=== PATIENT | female | born 1985 | race Two or more races ===

== ENCOUNTER 2025-05-24 17:55 | Emergency (ER) | payer OTHER, SELFPAY ==
[2025-05-24 18:08] VITALS: BP 119/73; PULSE 71; RESP 16; TEMP 36.9; O2SAT 100; BMI 27.1
--- NOTE | 2025-05-24 18:35 | EKG_ITS ---
[facility] Test Date: 2025-05-24 Pat Name: COLTEN Hughespartment: Room: - Gender: Female [employer]: : 1985 Requested By: Jarvis Doan Order Number: [id number] Reading MD: Jarvis Doan Measurements Intervals [place] Rate: 75 P: 63 GA: 147 QRS: 54 QRSD: 95 T: 64 QT: 369 QTc: 414 Interpretive Statements SINUS RHYTHM POSSIBLE LEFT ATRIAL ENLARGEMENT [-0.1mV P-WAVE IN V1/V2] POSSIBLE RIGHT VENTRICULAR CONDUCTION DELAY [RSR (QR) IN V1/V2] Compared to ECG 04/07/2020 19:31:41 No significant changes /store/S0/[id number].pdf
--- NOTE | 2025-05-24 18:37 | PD.EDRME ---
Rapid Medical Screening Exam RME Arrival date/time: 05/24/25 17:55 39-year-old female with a history of Graves' disease reports with complaints of near syncope and chest pain Chief Complaint: Dizziness Time Seen by Provider: 05/24/25 18:02 Vital signs: Vital Signs Temperature 98.4 F 05/24/25 18:08 Pulse Rate 71 05/24/25 18:08 Respiratory Rate 16 05/24/25 18:08 Blood Pressure 119/73 05/24/25 18:08 Pulse Oximetry (%) 100 05/24/25 18:08 Oxygen Delivery Method Room Air 05/24/25 18:08
[2025-05-24 19:16] LABS: Collection Type, Urine Clean Catch
[2025-05-24 19:27] LABS: Basophils # (Auto) 0.0 Thou/mm3 (0.0-0.2); Basophils % (Auto) 1 % (0-2.5); Eosinophils # (Auto) 0.1 Thou/mm3 (0.0-0.5); Eosinophils % (Auto) 2 % (0-10); Hematocrit 36.1 % (36.0-46.0); Hemoglobin 11.3 g/dL (12.0-16.0); Immature Granulocytes Auto 0.01 Thou/mm3 (0.00-0.00); Lymphocytes # (Auto) 1.9 Thou/mm3 (1.0-4.8); Lymphocytes % (Auto) 36 % (10-50); Mean Corpuscular HGB Conc 31.3 g/dl (31.0-37.0); Mean Corpuscular Hemoglobin 27.0 pg (25.0-35.0); Mean Corpuscular Volume 86 fL (80-100); Monocytes # (Auto) 0.4 Thou/mm3 (0.0-0.8); Monocytes % (Auto) 7 % (0-12); Neutrophils # (Auto) 2.9 Thou/mm3 (1.8-7.7); Neutrophils % (Auto) 54 % (37-80); Nucleated Red Blood Cell # 0.00 Thou/mm3 (0.00-0.00); Nucleated Red Blood Cell % 0 /100 WBC (0); Platelet Count 236 Thou/mm3 (140-440); RDW Standard Deviation 57.4 fL (36.4-46.3); Red Blood Count 4.19 Miln/mm3 (4.00-5.20); White Blood Count 5.4 Thou/mm3 (3.6-11.0)
[2025-05-24 19:33] LABS: Bilirubin,Urine Negative (Negative); Blood,Urine 1+ (Negative); Clarity,Urine Clear (Clear/Hazy); Color,Urine Lt-Yellow (Lt Yel-Yel); Glucose, Urine Negative (Negative); Ketones,Urine Negative (Negative); Leukocyte Esterase,Urine Negative (Negative); Nitrite,Urine Negative (Negative); PH,Urine 7.0 (5.0-7.0); Protein,Urine Negative (Neg - Trace); RBC,Urine 11 /hpf (0-3); Specific Gravity,Urine 1.022 (1.001-1.035); Squamous Epithelial Cell,Urine 13 /hpf (0-5); Urobilinogen,Urine Negative mg/dL (0.0-1.0); WBC,Urine 1 /hpf (0-5)
[2025-05-24 19:37] LABS: HCG,Qualitative Serum Negative
[2025-05-24 19:55] LABS: Alanine Aminotransferase 21 U/L (10-49); Albumin, Serum 4.5 gm/dL (3.5-5.0); Albumin/Globulin Ratio 1.6 (1.2-2.2); Alkaline Phosphatase 84 U/L (46-116); Anion Gap 8 (7-16); Aspartate Amino Transferase 24 U/L (0-34); BUN/Creatinine Ratio 17 Ratio (12-20); Bilirubin,Total 0.3 mg/dL (0.3-1.2); Blood Urea Nitrogen 12 mg/dL (9-23); Calcium 9.7 mg/dL (8.3-10.6); Calcium (Corrected) 9.7 mg/dL (8.5-10.1); Carbon Dioxide 27.7 mMol/L (20.0-31.0); Chloride 106 mMol/L (98-107); Creatinine (Component) 0.7 mg/dL (0.6-1.3); Estimated Creatinine Clearance 106.5 mL/min (>60); Free T3 4.7 pg/mL (2.3-4.2); Globulin 2.9 gm/dL (2.3-3.5); Glucose 105 mg/dL (74-106); Osmolality,Calculated 282 (275-295); Potassium 4.3 mMol/L (3.4-5.1); Sodium 142 mMol/L (136-145); Thyroid Stimulating Hormone < 0.01 uIU/mL (0.55-4.78); Total Protein 7.4 gm/dL (5.7-8.2); Troponin I < 0.020 ng/mL (0.0-0.045); eGFR > 60 See Note
[2025-05-24 20:17] VITALS: BP 125/74; PULSE 65; RESP 18; O2SAT 100
--- NOTE | 2025-05-24 20:39 | PD.EDDIZZY ---
ED Dizzyness RME/HPI General Chief Complaint: Dizziness Stated Complaint: DIZZINESS Time Seen by Provider: 05/24/25 18:02 Arrival date/time: 05/24/25 17:55 RME / HPI RME / HPI Narrative: 39-year-old female with a history of Graves' disease/hyperthyroidism, currently taking methimazole,reports with complaints of near syncope, dizziness, earlier today. Patient also noticed chest discomfort lasting for few minutes. Currently denying any complaints. Patient is currently taking methimazole 10 mg. Patient denies any palpitation. Denies any jittery. Denies any anxiety like symptoms. She had a scheduled follow-up with PCP in 6 days. Related Data Previous Rx's ?Medication ?Instructions ?Recorded cyclobenzaprine 5 mg tablet 5 mg PO TID PRN muscle spasm #12 04/07/20 tabs ibuprofen 600 mg tablet 600 mg PO Q8H #30 tabs 04/07/20 Allergies Allergy/AdvReac Type Severity Reaction Status Date / Time No Known Allergies Allergy Verified 05/24/25 17:57 Review of Systems Review of Systems Narrative Review of Systems: Review of system reviewed and within normal limits except mentioned in HPI ED Exam Narrative Physical exam: VITAL SIGNS: Reviewed. GENERAL APPEARANCE: Alert and interactive, follows commands, no acute distress, HEAD AND FACE: Non-traumatic. ENT: PERRL, pink conjunctivitis, eyelid no trauma, Mucous membrane moist. NECK: Supple, nontender, no nuchal rigidity. CHEST: No tenderness, no crepitus, no paradoxical movement, no retractions. LUNGS: Clear, well ventilated, symmetric, no rales, no wheezing, no ronchi, no stridor, good breath sounds bilaterally. HEART: Regular rate, regular rhythm, no murmur, no gallops. ABDOMEN: Soft, positive bowel sounds, nondistended, no guarding, nontender, no rebound, no masses, RECTAL: Deferred. GENITAL: Deferred. NEUROLOGICAL: Gross motor function intact sensory function intact, Appropriate for age. MUSCULOSKELETAL: low back nontender, full range of motion. EXTREMITIES: Nontender, full range of motion. SKIN: Color pink, dry, no rash, no lacerations, no abrasions, no contusions. LYMPHATICS: Deferred. Course Quality Measures none Orders Category Date Time Status EKG (ED ONLY) *Do not use* NOW Care 05/24/25 18:36 Completed EKG (ED Only) Stat Exams 05/24/25 18:35 Draft CBC Stat Lab 05/24/25 18:48 Completed CMP [Comprehensive Metabolic Panel] Stat Lab 05/24/25 18:48 Completed Free T3 Stat Lab 05/24/25 18:48 Completed HCG,Qualitative Serum Stat Lab 05/24/25 18:48 Completed TSH [Thyroid Stimulating Hormone] Stat Lab 05/24/25 18:48 Completed Troponin I Stat Lab 05/24/25 18:48 Completed UA [Urinalysis] Stat Lab 05/24/25 18:53 Completed Vital Signs Vital signs: Vital Signs Temperature 98.4 F 05/24/25 18:08 Pulse Rate 71 05/24/25 18:08 Respiratory Rate 16 05/24/25 18:08 Blood Pressure 119/73 05/24/25 18:08 Pulse Oximetry (%) 100 05/24/25 18:08 Oxygen Delivery Method Room Air 05/24/25 18:08 Dizziness MDM Narrative MDM Narrative:: 39-year-old female with a history of Graves' disease/hyperthyroidism, currently taking methimazole,reports with complaints of near syncope, dizziness, earlier today. Patient also noticed chest discomfort lasting for few minutes. Currently denying any complaints. Patient is currently taking methimazole 10 mg. Patient denies any palpitation. Denies any jittery. Denies any anxiety like symptoms. She had a scheduled follow-up with PCP in 6 days. Patient's CBC showed no acute pathology except for slight anemia of 11.3 CMP unremarkable TSH was noted to be less than 0.01, T3 of 4.7. Patient is currently taking 10 mg of methimazole, I advised the patient to increase it to 20 mg. Patient told me that she used to take 20 mg but her PCP decreased to 10 because her numbers are getting better. Patient currently is not showing any sign of hyper-thyroid crisis. Patient EKG showed sinus rhythm, ventricular rate of 75 bpm, no ST segment elevation or depression noted. She is stable to discharge home. Patient data External records reviewed:: None Clinical information provided by:: patient Social determinants that could affect healthcare access:: none Patient has the following chronic illnesses:: This hyperthyroidism How is presenting disease/condition affected by chronic disease/condition?: uneffected by Evaluation data The following diagnostics were reviewed and interpreted by me:: lab results and EKG tracing(s) Lab and/or radiology exams considered but not ordered:: None Interpretation Summary: See results MDM Medications / Prescriptions Medications or Prescriptions considered but not ordered:: None Medication administrations:: None Consultations Consultation(s) initiated? (list below): No Diagnosis Dizziness Differential Diagnosis: other (Dizziness, hyperthyroidism, hyperthyroidism crisis) Most likely diagnosis given after review of the tests above:: Hyperthyroidism, dizziness Admission Indicated Admission indicated?: not indicated Admission Request Was there a request for admission?: No Disposition Plan Disposition Plan: Admit Discharge Plan Plan Patient Disposition: HOME (Self Care) Discharge Disposition comment: Stable Prescriptions/Referrals Prescriptions/Med Rec: No Action cyclobenzaprine 5 mg tablet 5 mg PO TID PRN (Reason: muscle spasm) Qty: 12 0RF ibuprofen 600 mg tablet 600 mg PO Q8H Qty: 30 0RF Referrals: No Primary/Family,Physician [Primary Care Provider] - In 1 week Problem List Clinical Impression: Dizziness Patient/Caregiver Discharge Instructions Discharge Activity: activity as tolerated Education Materials: ED Dizziness, Uncertain Cause Additional Instructions: Thank you for the opportunity for serving you today. You are stable for discharged . You are advised to: Follow-up with your PCP in 1 to 2 days Return to ED for worsening of symptoms Increase oral fluids Increase your methimazole to 20 mg daily until seen by your PCP Print Language: Trinidadian Stand Alone Forms: [place] Award Info., Patient Portal Info Letter PA/RAJINDER Supervising Physician ONEIL/RAJINDER Supervising Physician: MD [place]
== END 2025-05-24 20:53 | disposition home or self-care (01) ==
PROVIDERS: Physician Assistant; Emergency Provider Emergency Medicine
DX: R42 Dizziness and giddiness (principal)
CPT/HCPCS: 36415; 80053; 81001; 84443; 84481; 84484; 84703; 85025; 93005; 99283